=== PATIENT | female | born 1980 | race Two or more races ===

== ENCOUNTER 2019-09-07 07:18 | Emergency (ER) | payer MEDICAID, OTHER ==
[~2019-09-07] VITALS: Ht 177.8 cm; Wt 64.4 kg
--- NOTE | 2019-09-07 07:24 | NUR ---
YOVANI, FROM [facility] FOR WITNESSED SYNCOPAL EPISODE, PER REPORT +ORTHO, +HEAD INJURY, AND LAC ON LIP, TO ER BED 2, HOOKED TO MONITOR, CHANGED TO [facility]OS[facility]ITAL [facility], AWAITING MD SANZ.
--- NOTE | 2019-09-07 07:41 | NUR ---
DR CASAS AT BEDSIDE
[2019-09-07] MEDS ORDERED: IV NS 0.9% 1,000 ML BAG IV ONE (08:00)
[2019-09-07 08:05] LABS: BASOPHILS % (AUTO) 0.7 % (0.0-2.0); EOSINOPHILS % (AUTO) 2.5 % (0.0-6.0); HEMATOCRIT 40 % (33-45); HEMOGLOBIN 13.5 g/dL (11.5-14.8); LYMPHOCYTES # (AUTO) 0.9 /CMM (0.8-4.8); LYMPHOCYTES % (AUTO) 12.3 % (20.0-44.0); MEAN CORPUSCULAR HGB CONC 33 g/dl (31.0-36.0); MEAN CORPUSCULAR VOLUME 93 fL (82-100); MONOCYTES # (AUTO) 0.3 /CMM (0.1-1.30); MONOCYTES % (AUTO) 4.5 % (2.0-12.0); NEUTROPHILS # (AUTO) 6.1 /CMM (1.8-8.9); PLATELET COUNT (AUTO) 162 /CMM (150-450); RED BLOOD CELL COUNT(AUTO) 4.33 MIL/uL (4.0-5.2); WHITE BLOOD COUNT (AUTO) 7.6 K/uL (4.3-11.0)
[2019-09-07 08:12] LABS: CALCIUM, SERUM 8.7 mg/dL (8.5-10.1); CREATININE 0.7 mg/dL (0.6-1.3)
[2019-09-07 08:18] LABS: ALBUMIN 3.7 g/dL (3.4-5.0); BILIRUBIN,DIRECT 0.1 mg/dL (0.0-0.2); BILIRUBIN,TOTAL 0.4 mg/dL (0.2-1.0); TOTAL PROTEIN, SERUM 6.5 g/dL (6.4-8.2)
--- NOTE | 2019-09-07 08:51 | NUR ---
PATIENT SIGNED WAIVER FORM. LMP 2018
--- NOTE | 2019-09-07 08:53 | NUR ---
WHEELED OUT VIA [facility] FOR CT SCAN
[2019-09-07] MEDS ORDERED: IOHEXOL-300 100 ML VIAL IV ONE (09:17)
--- NOTE | 2019-09-07 10:53 | NUR ---
called [facility] and spoke to Savana will fax authorization form for transport and will call back for ETA.
--- NOTE | 2019-09-07 11:32 | NUR ---
WILLIAM HUTCHISON 1215 TRIP#[id number]
--- NOTE | 2019-09-07 12:28 | NUR ---
IV removed. Catheter intact and site benign. Pressure and 4x4 applied to site. No bleeding noted. Patient picked up by [facility] in stable condition and will be brought back to [facility]. Written and verbal after care instructions given. Patient verbalizes understanding of instruction.
[2019-09-07 12:29] VITALS: BP 99/62
== END 2019-09-07 12:30 | disposition home or self-care (01) ==
LOC: ER 07:18
DX: R55 Syncope and collapse (principal); R51 Headache; F32.9 Major depressive disorder, single episode, unspecified; F10.10 Alcohol abuse, uncomplicated; Y90.9 Presence of alcohol in blood, level not specified
CPT/HCPCS: 36415; 70470; 80048; 80076; 85025; 93005; 96360; 99284; J7030; Q9967